=== PATIENT | female | born 1960 | race Hispanic/Latino ===

== ENCOUNTER 2018-08-30 01:43 | Observation (INO) | payer OTHER ==
[2018-08-30] MEDS ORDERED: Famotidine 20 MG TAB ONE (02:19)
[2018-08-30] MEDS ORDERED: Milk Of Magnesia 30 ML UDCUP ONE (02:19)
[2018-08-30] MEDS ORDERED: Lidocaine Viscous Sol 2% 15 ml UD Cup ONE (02:19)
[2018-08-30 02:36] LABS: #Basophils 0.1 thou/uL (0.0-0.2); #Eosinphils 0.1 thou/uL (0.0-0.7); #Lymphocytes 3.2 thou/uL (1.20-3.40); #Monocytes 0.6 thou/uL (0.11-0.59); #Neutrophils 12.7 thou/uL (1.40-6.50); %Basophils 0.5 % (0.0-1.0); %Eosinophils 0.6 % (0.0-10.0); %Lymphocytes 19.2 % (21.0-51.0); %Monocytes 3.4 % (0.0-10.0); %Neutrophils 76.2 % (42.0-75.0); Hemoglobin 14.2 g/dL (12.0-16.0); Mean Corpuscular HGB CONC 33.5 g/dL (32.0-36.0); Mean Corpuscular Hemoglobin 31.7 pg (27.0-31.0); Mean Corpuscular Volume 94.6 fL (78.0-98.0); Mean Platelet Volume 6.5 fL (7.4-10.4); Platelet Count 350 thou/uL (130-400); RBC Distribution Width 11.3 % (11.5-14.5); Red Blood Cell (RBC) Count 4.48 mill/uL (4.20-5.40); White Blood Cell (WBC) Count 16.7 thou/uL (4.8-10.8)
[2018-08-30 02:59] LABS: ALT (SGPT) 25 U/L (8-55); AST (SGOT) 19 U/L (5-34); Albumin 4.4 g/dL (3.5-5.0); Alkaline Phosphatase 100 U/L (40-150); Anion Gap 12 mmol/L (10-20); BUN (Urea Nitrogen) 20 mg/dL (9.8-20.1); Bilirubin, Total 0.4 mg/dL (0.2-1.2); Calc. Creatinine Clearance 0 mL/min (70-130); Calcium 9.8 mg/dL (7.8-10.44); Carbon Dioxide 24 mmol/L (22-29); Chloride 107 mmol/L (98-107); Estimated GFR-MDRD 67; Globulin 3.2 g/dL (2.4-3.5); Glucose 112 mg/dL (70-105); Potassium 3.6 mmol/L (3.5-5.1); Protein, Total 7.6 g/dL (6.0-8.3); Sodium 139 mmol/L (136-145)
[2018-08-30 03:52] LABS: Bilirubin Negative (Negative); Blood, Urine Small (Negative); Clarity CLEAR (Clear); Glucose, Urine (Dipstick) Negative (Negative); Leukocyte Small (Negative); Nitrite Negative (Negative); Protein, Urine (Dipstick) Negative (Neg-Trace); Specific Gravity, Urine 1.025 (1.002-1.036); Urobilinogen 0.2 mg/dL (0.2-1.0); pH, Urine 5.5 (5.0-9.0)
[2018-08-30 03:55] LABS: Bacteria/HPF None Seen HPF (None Seen); Hyaline Casts/LPF 4-6 HYALINE CAST LPF (0-3 Hyaline); Pathc Cast-AUWi Flag 0.14 (0-2.49); Squamous Epithelial 0-3 HPF (0-3)
[2018-08-30 03:59] LABS: Yeast-AUWi Flag 65.7 (0-25.0)
[2018-08-30 04:07] LABS: Yeast-All Forms None Seen HPF (None Seen)
[2018-08-30] MEDS ORDERED: Aspirin Chewable 81 MG TAB ONE (04:45)
[2018-08-30] MEDS ORDERED: Loperamide HCl 2 MG CAP PO PRN (07:28)
[2018-08-30] MEDS ORDERED: Sodium Chloride 0.65% Nasal 44 ML BOT EA NARE PRN (07:28)
[2018-08-30] MEDS ORDERED: Diabetic Tussin 200 MG/10 ML UDCUP PO PRN (07:28)
[2018-08-30] MEDS ORDERED: Ondansetron PF 4 MG/2 ML Vial IVP PRN (07:28)
[2018-08-30] MEDS ORDERED: Loratadine 10 MG TAB PO PRN (07:28)
[2018-08-30] MEDS ORDERED: Ondansetron ODT 4 MG TAB PO PRN (07:28)
[2018-08-30] MEDS ORDERED: HYDROcodone/Acetaminophen 5/325 mg Tablet PO PRN (07:28)
[2018-08-30] MEDS ORDERED: Eucerin (Mineral Oil/Petrolatum,White) 30 gm Jar TOP PRN (07:28)
[2018-08-30] MEDS ORDERED: Bisacodyl 10 MG SUPP PR PRN (07:28)
[2018-08-30] MEDS ORDERED: hydrALAZINE 20 MG/ML VIAL SLOW IVP PRN (07:28)
[2018-08-30] MEDS ORDERED: Senokot S 8.6-50 MG TAB PO PRN (07:28)
[2018-08-30] MEDS ORDERED: Cepastat Lozenges 1 LOZ PO PRN (07:28)
[2018-08-30] MEDS ORDERED: Nitroglycerin 0.4 MG TAB (25 Tab Bottle) SL PRN (07:28)
[2018-08-30] MEDS ORDERED: Calcium Carbonate 500 MG ChewTAB PO PRN (07:28)
[2018-08-30] MEDS ORDERED: Acetaminophen 325 MG TAB PO PRN (07:28)
[2018-08-30] MEDS ORDERED: Artificial Tears 18 DROP/0.9 ML EA EYE PRN (07:28)
[2018-08-30] MEDS ORDERED: Zolpidem Tartrate 5 MG TAB PO PRN (07:28)
[2018-08-30 07:47] VITALS: BMI 39.1
--- NOTE | 2018-08-30 08:23 | RAD ---
SINGLE VIEW OF THE CHEST: COMPARISON: 09/28/2012. HISTORY: Burning chest pain. FINDINGS: Single view of the chest shows a normal sized cardiomediastinal silhouette. There is no evidence of c onsolidation, mass, or pleural effusion. The bones are unremarkable. IMPRESSION: No evidence of acute cardiopulmonary disease. POS: [facility]
[2018-08-30] MEDS ORDERED: ADENOSINE 60 MG/20 ML VIAL ONE (09:20)
--- NOTE | 2018-08-30 09:54 | ULT ---
PRELIMINARY REPORT/[facility]/EMERGENTY AFTER-HOURS PROCEDURE US Abdomen Limited, Right Upper Quadrant EXAM DATE/TIME: 08/30/2018 3:05 AM CLINICAL HISTORY: 58 years old, female; Pain; Other: Ruq pain TECHNIQUE: Real-time ultrasound of the abdomen with image documentation. Examination was focused on the right up per quadrant. COMPARISON: No relevant prior studies available. FINDINGS: Limitations: Study limited secondary to patient body habitus. Liver: Echogenic hepatic parenchyma, compatible with hepatic cysts. No focal hepatic lesions. Gallbladder: Sonographic Silvestre sign was reportedly positive. Small amount of echogenic, nonshadowing material within the gallbladder, likely sludge. No pericholecystic fluid. Gallbladder wall measures 2 mm in thickness. Common bile duct: Common bile duct measures 5 mm in diameter. Pancreas: Visualized portions of the pancreas appear mildly echogenic, possibly secondary to fatty in filtration or medical pancreatic disease. Right kidney: Right kidney is normal in appearance and measures 11.5 cm in length. IMPRESSION: 1. Possible small amount of gallbladder sludge, without sonographic evidence of acute cholecystitis. 2. Mild hepatic steatosis. Thank you for allowing us to participate in the care of your patient. Dictated and Authenticated by: Darci Doll MD 08/30/2018 3:51 AM Central Time ([place] & [place]) FINAL REPORT RIGHT UPPER QUADRANT ULTRASOUND: Date: 08/30/18 Multiple longitudinal and transverse images of the right upper quadrant of the abdomen obtained using a multihertz curvilinear transducer. Real-time and color flow images demonstrate fibrofatty changes seen in the liver. The gallbladder demonstrates no evidence of wall thickening. No evidence of gallst ones seen. There may be a small amount of gallbladder sludge present. Common bile duct is of normal s ize, measuring 4.7 mm. No evidence of intrahepatic biliary dilatation seen. The pancreas is partially obscured due to overlying bowel gas. What is seen is unremarkable. The right kidney is unremarkable with no evidence of masses, lesions, or hydronephrosis. IMPRESSION: Possible small amount of gallbladder sludge. No definite evidence of cholelithiasis seen. No evidence of intrahepatic biliary dilatation seen. I am in agreement with the preliminary report issued by Gary. POS: [facility]
--- NOTE | 2018-08-30 10:32 | HP ---
PRIMARY CARE PHYSICIAN: [facility] Call admission. REASON FOR ADMISSION: Chest pain, epigastric pain, and leukocytosis. HISTORY OF PRESENT ILLNESS: A 58-year-old female, who has underlying history of obstructive sleep apnea, on CPAP, as well as chronic left bundle-branch block and hypertension, who presented to emergency room with complaint of chest pain. Her chest pain was substernal in location, radiating to jaw, and associated with cold sweats and nausea. The patient was given aspirin and that helped her pain. There was no specific aggravating factor. The patient was also complaining of epigastric pain. She does have chronic dyspepsia symptoms. She denies any fever or chills. She does not have any UTI symptoms. When I saw this patient in the morning, the patient's chest pain was subsided. She was feeling mild epigastric discomfort. She denies any constipation, diarrhea, melena, or hematochezia. She denies any dyspnea on exertion, palpitation, orthopnea, or PND. She denies any lower extremity edema or calf tenderness. She denies any immobilization. The patient reports that her epigastric pain started after eating pizza. The patient also reports that she intermittently gets this type of epigastric discomfort after certain type of foods. She denies any weight loss. REVIEW OF SYSTEMS: CONSTITUTIONAL: Negative for weight loss or gain, ability to conduct usual activities. SKIN: Negative for rash, itching. EYES: Negative for double vision, pain. ENT/MOUTH: Negative for nose bleeding, neck stiffness, pain, tenderness. CARDIOVASCULAR: Negative for palpitations, dyspnea on exertion, orthopnea. RESPIRATORY: Negative for shortness of breath, wheezing, cough, hemoptysis, fever or night sweats. GASTROINTESTINAL: Negative for poor appetite, abdominal pain, heartburn, nausea, vomiting, constipation, or diarrhea. GENITOURINARY: Negative for urgency, frequency, dysuria, nocturia. MUSCULOSKELETAL: Negative for pain, swelling. NEUROLOGIC/PSYCHIATRIC: Negative for anxiety, depression. ALLERGY/IMMUNOLOGIC: Negative for skin rash, bleeding tendency. Please see my HPI for pertinent positives and negatives. All other review of systems reviewed and negative except as mentioned in HPI. PAST MEDICAL HISTORY: JOSIE, on CPAP; chronic LBBB; hypertension; gastroesophageal reflux disease; obesity. PAST SURGICAL HISTORY: x2. PAST PSYCHIATRIC HISTORY: Anxiety and depression. SOCIAL HISTORY: The patient is . She drinks alcohol socially. She denies any smoking. She denies any other illicit drug abuse. FAMILY HISTORY: No family history of coronary artery disease, stroke, or cancer. ALLERGIES: LISINOPRIL GIVES COUGH. CURRENT HOME MEDICATIONS: 1. Lasix 20 mg daily. 2. Coreg 3.125 mg twice daily. 3. Lexapro 10 mg daily. 4. Losartan 12.5 mg p.o. daily. 5. Protonix 40 mg p.o. daily. EMERGENCY ROOM COURSE: The patient is given aspirin, IV fluid, GI cocktail, and Pepcid. PHYSICAL EXAMINATION: VITAL SIGNS: On arrival, blood pressure 117/55, pulse 81, respiratory rate 20, temperature 98.0, saturation 98% on room air, and weight 98.4 kg. GENERAL: The patient is currently alert, awake, and in no obvious acute distress. HEENT: Head; normocephalic and atraumatic. Eyes; pupils round and reactive to light. Extraocular muscle intact. ENT; oropharynx within normal limits. Moist mucous membranes. No oral lesion. No pharyngeal erythema. No exudate. NECK: Supple. No JVD. No thyromegaly. No carotid bruit. No jugular venous distention. LUNGS: Clear to auscultation without any rhonchi or rales. CARDIAC: S1 and S2 regular without any murmur. ABDOMEN: Soft. Bowel sounds present. The patient does have mild epigastric discomfort, but I deeply palpated right upper quadrant and I could not elicit Silvestre's sign. BACK: Unremarkable. No CVA tenderness. EXTREMITIES: Upper extremities, passive movement of all joints are normal. Lower extremities, no edema. Good distal pulsation. No calf tenderness. SKIN: No skin rash. HEMATOLOGICAL SYSTEM: No lymphadenopathy. NEUROLOGIC: Nonfocal examination. SIGNIFICANT LABORATORY DATA: EKG showing complete left bundle-branch block pattern. Abdominal ultrasound showing gallbladder sludge. Chest x-ray, based on my review, no acute cardiopulmonary process. CBC, WBC 16.7, hemoglobin 14.2, and platelets 350. BMP, sodium 139, potassium 3.6, chloride 107, carbon dioxide 24, BUN 20, creatinine 0.87, glucose 112, and calcium 9.8. LFT, AST 19, ALT 25, alkaline phosphatase 100, and albumin 4.4. Cardiac enzyme negative x3. Urinalysis, leukocyte esterase small and wbc's 4 to 6. ASSESSMENT AND PLAN: 1. Chest pain. The patient's chest pain description is atypical. She does have chronic left bundle-branch block picture. She has negative cardiac enzymes. At this point, the patient is agreed to perform stress test for further evaluation. We will check lipid profile tomorrow. As the patient has left bundle-branch block, the patient will need imaging stress test. 2. Epigastric pain, suspecting from gastroesophageal reflux disease. The patient does have right upper quadrant ultrasound, which is showing gallbladder sludge. She does not have any liver function test abnormality and I could not elicit any Silvestre's sign, and the patient also does not have any fever. She does have chronic dyspepsia symptoms. The patient may need outpatient evaluation if persistent problem for laparoscopic cholecystectomy if needed, but at this point the patient does not need that intervention during this admission. 3. Leukocytosis, likely stress related, but less likely to be infection given no fever. At this point, we will repeat complete blood count tomorrow. We will send urine culture. While in hospital, if she gets any low-grade fever, then we will have low threshold to start oral antibiotic therapy for asymptomatic bacteriuria. 4. Asymptomatic bacteriuria. The patient does not have any urinary tract infection symptoms. We will send urine culture. We will avoid antibiotic therapy at this point. 5. Deep venous thrombosis prophylaxis not needed because we are expecting discharge in 24 hours. 6. Gastrointestinal prophylaxis, Protonix 40 mg p.o. daily. 7. Hypertension. We will hold on antihypertensive medication because of currently low blood pressure and we will continue with intravenous fluid. 8. Fatty liver, but the patient's liver function test is normal. The patient will need underlying metabolic factors correction. 9. Obesity with body mass index 39. Dietary education given. Weight loss education given. Healthy lifestyle measure discussed with the patient. DISPOSITION PLAN: Likely tomorrow. Plan of care discussed with the patient and family member in detail. Job ID: [id number]
[2018-08-30] MEDS: Escitalopram Oxalate 10 mg Tablet PO SCH (11:05)
[2018-08-30] MEDS: Sodium Chloride 0.9% 1,000 ML IV SCH ×2 (11:08→22:51)
[2018-08-31 05:37] LABS: #Eosinphils 0.1 thou/uL (0.0-0.7); #Lymphocytes 2.9 thou/uL (1.20-3.40); #Monocytes 0.4 thou/uL (0.11-0.59); #Neutrophils 3.6 thou/uL (1.40-6.50); %Basophils 0.6 % (0.0-1.0); %Eosinophils 1.7 % (0.0-10.0); %Lymphocytes 41.8 % (21.0-51.0); %Monocytes 5.6 % (0.0-10.0); %Neutrophils 50.4 % (42.0-75.0); Mean Corpuscular HGB CONC 33.1 g/dL (32.0-36.0); Mean Corpuscular Hemoglobin 31.7 pg (27.0-31.0); Mean Corpuscular Volume 95.7 fL (78.0-98.0); Mean Platelet Volume 6.5 fL (7.4-10.4); Platelet Count 301 thou/uL (130-400); RBC Distribution Width 11.3 % (11.5-14.5); Red Blood Cell (RBC) Count 3.78 mill/uL (4.20-5.40)
[2018-08-31 06:22] LABS: Anion Gap 10 mmol/L (10-20); BUN (Urea Nitrogen) 14 mg/dL (9.8-20.1); Calc. Creatinine Clearance 138 mL/min (70-130); Calcium 8.8 mg/dL (7.8-10.44); Carbon Dioxide 20 mmol/L (22-29); Cardiac Risk 2.7 (Less than 4.5); Chloride 111 mmol/L (98-107); Cholesterol 128 mg/dl (< 200 Desired); Estimated GFR-MDRD 88; Glucose 90 mg/dL (70-105); HDL Cholesterol 47 mg/dL (>60 Neg Risk); LDL Cholesterol, Calculated 62 mg/dL; Potassium 4.2 mmol/L (3.5-5.1); Sodium 137 mmol/L (136-145); Triglycerides 94 mg/dL (Less than 150)
--- NOTE | 2018-08-31 09:31 | PDOC.PN ---
- Subjective Encounter Start Date: 08/31/18 Encounter Start Time: 07:10 -: old records requested/rev Patient seen and examined. No new complaints. No overnight events - Objective Resuscitation Status - Order Detail: 08/30/18 07:25 Resuscitation Status Routine Resuscitation Status: FULL: Full Resuscitation MAR Reviewed: Yes Vital Signs & Weight: Vital Signs (12 hours) Temp Pulse Resp BP Pulse Ox 08/31/18 07:16 98.3 F 70 15 136/60 97 08/30/18 23:37 98.4 F 72 12 120/56 L 95 Weight Weight 214 lb I&O: 08/30/18 08/31/18 09/01/18 06:59 06:59 06:59 Intake Total 2241 Balance 2241 Result Diagrams: 08/31/18 04:42 08/31/18 04:42 EKG Reviewed by me: Yes (nsr) Phys Exam - Physical Examination Constitutional: NAD HEENT: PERRLA, moist MMs, sclera anicteric Neck: no JVD, supple Respiratory: no wheezing, no rales, no rhonchi Cardiovascular: RRR, no significant murmur, no rub Gastrointestinal: soft, non-tender, no distention, positive bowel sounds Musculoskeletal: no edema, pulses present Neurological: non-focal, normal sensation, moves all 4 limbs Psychiatric: normal affect, A&O x 3 Skin: no rash, normal turgor Dx/Plan (1) Chest pain Code(s): R07.9 - CHEST PAIN, UNSPECIFIED Status: Resolved (2) Epigastric abdominal pain Code(s): R10.13 - EPIGASTRIC PAIN Status: Resolved (3) Hypertension Code(s): I10 - ESSENTIAL (PRIMARY) HYPERTENSION Status: Chronic (4) GERD (gastroesophageal reflux disease) Code(s): K21.9 - GASTRO-ESOPHAGEAL REFLUX DISEASE WITHOUT ESOPHAGITIS Status: Chronic (5) Obesity (BMI 30-39.9) Code(s): E66.9 - OBESITY, UNSPECIFIED Status: Chronic (6) Asymptomatic bacteriuria Code(s): R82.71 - BACTERIURIA Status: Acute - Plan cont current plan of care, plan discussed w/ family * cipro for asymptomatic UTI * if stress test normal will DC to home * medication reviewed as below * symptomatic treatment. Review of Systems - Review of Systems ENT: negative: Ear Pain, Ear Discharge, Nose Pain, Nose Discharge, Nose Congestion, Mouth Pain, Mouth Swelling, Throat Pain, Throat Swelling, Other Respiratory: negative: Cough, Dry, Shortness of Breath, Hemoptysis, SOB with Excertion, Pleuritic Pain, Sputum, Wheezing Cardiovascular: negative: chest pain, palpitations, orthopnea, paroxysmal nocturnal dyspnea, edema, light headedness, other Gastrointestinal: negative: Nausea, Vomiting, Abdominal Pain, Diarrhea, Constipation, Melena, Hematochezia, Other Genitourinary: negative: Dysuria, Frequency, Incontinence, Hematuria, Retention , Other Musculoskeletal: negative: Neck Pain, Shoulder Pain, Arm Pain, Back Pain, Hand Pain, Leg Pain, Foot Pain, Other Skin: negative: Rash, Lesions, Negro, Bruising, Other - Medications/Allergies Allergies/Adverse Reactions: Allergies Allergy/AdvReac Type Severity Reaction Status Date / Time lisinopril AdvReac Mild COUGH Verified 08/30/18 08:01 Medications: Current Medications Acetaminophen (Tylenol) 650 mg PO Q4H PRN PRN Reason: Headache/Fever/Mild Pain (1-3) Last Admin: 08/30/18 14:19 Dose: 650 mg Hydrocodone Bitart/Acetaminophen (Rossiter 5/325) 1 tab PO Q4H PRN PRN Reason: Moderate Pain (4-6) Last Admin: 08/31/18 06:15 Dose: 1 tab Artificial Tears (Tears Naturale) 2 drop EA EYE PRN PRN PRN Reason: Dry Eyes Bisacodyl (Dulcolax) 10 mg VT DAILYPRN PRN PRN Reason: Constipation Calcium Carbonate (Tums) 1,000 mg PO Q4H PRN PRN Reason: Heartburn or Indigestion Escitalopram Oxalate (Lexapro) 20 mg PO DAILY [facility] Last Admin: 08/30/18 11:05 Dose: 20 mg Guaifenesin (Robitussin Sf) 200 mg PO Q4H PRN PRN Reason: Cough Hydralazine HCl (Apresoline) 10 mg SLOW IVP Q4H PRN PRN Reason: SBP > 180 and HR < 70 Sodium Chloride (Normal Saline 0.9%) 1,000 mls @ 75 mls/hr IV .[id number] [facility] Last Admin: 08/30/18 22:51 Dose: 1,000 mls Loperamide HCl (Imodium) 2 mg PO PRN PRN PRN Reason: Diarrhea/Loose Stools Loratadine (Claritin) 10 mg PO DAILYPRN PRN PRN Reason: Sinus Symptoms Mineral Oil/White Petrolatum (Eucerin Cream) 0 gm TOP BIDPRN PRN PRN Reason: Dry Skin Nitroglycerin (Nitrostat) 0.4 mg SL Q5MIN PRN PRN Reason: Chest Pain Ondansetron HCl (Zofran Odt) 4 mg PO Q6H PRN PRN Reason: Nausea/Vomiting Ondansetron HCl (Zofran) 4 mg IVP Q6H PRN PRN Reason: Nausea/Vomiting Pantoprazole Sodium (Protonix) 40 mg PO DAILY [facility] Last Admin: 08/30/18 11:07 Dose: 40 mg Senna/Docusate Sodium (Senokot S) 2 tab PO BID PRN PRN Reason: Constipation Sodium Chloride ([place] 0.65%) 0 ml EA NARE QIDPRN PRN PRN Reason: Nasal Congestion Throat Lozenges (Cepastat Lozenges) 1 moni PO Q2H PRN PRN Reason: Sore Throat Zolpidem Tartrate (Ambien) 5 mg PO HSPRN PRN PRN Reason: Insomnia
[2018-08-31] MEDS: Escitalopram Oxalate 10 mg Tablet PO SCH (09:38)
[2018-08-31 10:44] VITALS: BP 119/61; TEMP 97.9
[2018-08-31] MEDS: Sodium Chloride 0.9% 1,000 ML IV SCH (10:45)
--- NOTE | 2018-08-31 11:01 | NM ---
NUCLEAR MEDICINE CARDIAC PERFUSSION EXAMINATION WITH EJECTION FRACTION: History: 58-year-old female with chest pain and hypertension. Technique: A two-day Nuclear Medicine cardiac perfusion examination was performed. Resting images wer e obtained using 33 mCi Technetium 99M Sestamibi. Stress images were obtained using 30 mCi Technetium 99M Sestamibi and Adenosine. FINDINGS: There is a moderate sized, moderate intensity perfusion defect along the interseptal wall that is fix ed. No reversible perfusion defects are seen. Gated images show normal wall motion with ejection fraction of 59%. EDV is 88 ml. LHR is 0.4. TID is 1.04. IMPRESSION: 1. No evidence of ischemia. 2. Fixed perfusion defect along the anteroseptal wall extending into the apex may be sequellae from p rior infarction.
--- NOTE | 2018-08-31 11:18 | DIS ---
DATE OF ADMISSION: 08/30/2018 DATE OF DISCHARGE: 08/31/2018 PRIMARY CARE PHYSICIAN: [facility] Call Admission. DISCHARGE DISPOSITION: Home. PRIMARY DISCHARGE DIAGNOSES: Chest pain, ruled out acute coronary syndrome; epigastric abdominal pain, likely due to gastroesophageal reflux disease; asymptomatic bacteriuria. SECONDARY DISCHARGE DIAGNOSES: Gastroesophageal reflux disease, hypertension, obesity, dyslipidemia, coronary artery disease. PRIMARY PROCEDURE/OPERATION: None. RADIOLOGICAL INVESTIGATION: Chest x-ray; normal. Abdominal ultrasound showed gallbladder sludge. Stress test showed fixed defect without any reversible ischemia. SIGNIFICANT LABORATORY DATA: WBC 7.0, hemoglobin 12.0, platelets 301. Sodium 137, creatinine 0.69. LDL 62. Cardiac enzyme negative. LFT normal. Urinalysis showed leukocyte esterase small. Urine culture negative. DISCHARGE MEDICATIONS: 1. Cipro 500 mg p.o. b.i.d. for three days. 2. Aspirin 81 mg daily. 3. Coreg 3.125 mg b.i.d. 4. Lexapro 20 mg daily. 5. Lasix 20 mg daily. 6. Losartan 12.5 mg b.i.d. 7. Protonix 40 mg p.o. daily. CONTRAINDICATION: None. CODE STATUS: Full code. INPATIENT UROLOGIC NURSE: None. ALLERGIES: LISINOPRIL. DISCHARGE PLAN: Posthospital, the patient will follow up with primary care physician. HOSPITAL COURSE: A 58-year-old female with above-mentioned medical problem, who was admitted by me yesterday with chest pain. Please see my HPI for further detail. Her chest pain description was atypical. Her cardiac enzyme and EKG were unremarkable. The patient underwent stress test, which showed only fixed defect without any reversible ischemia. She also complained of epigastric abdominal pain that was related with gastroesophageal reflux disease. We found a small gallbladder sludge, but her LFT was normal. Overall, the patient did very well. The patient is planned for discharge today. The patient is seen and examined at bedside today. Plan of care discussed with the family member as well. Job ID: [id number]
== END 2018-08-31 11:33 | disposition home or self-care (01) ==
LOC: ERS 01:43 → ERHOLD 05:00 → 2SW 07:24
PROVIDERS: ADMIT Family Medicine; ATTEND Family Medicine
DX: R07.89 Other chest pain (principal); R10.13 Epigastric pain; R82.71 Bacteriuria; K21.9 Gastro-esophageal reflux disease without esophagitis; I10 Essential (primary) hypertension; I25.10 Atherosclerotic heart disease of native coronary artery without angina pectoris; E78.5 Hyperlipidemia, unspecified; K76.0 Fatty (change of) liver, not elsewhere classified; G47.33 Obstructive sleep apnea (adult) (pediatric); I44.7 Left bundle-branch block, unspecified; F41.9 Anxiety disorder, unspecified; F32.9 Major depressive disorder, single episode, unspecified; E66.9 Obesity, unspecified; Z68.39 Body mass index [BMI] 39.0-39.9, adult; Z79.899 Other long term (current) drug therapy; Z99.89 Dependence on other enabling machines and devices
CPT/HCPCS: 36415; 71045; 76705; 78452; 80048; 80053; 80061; 81003; 81015; 84484; 85025; 87086; 90471; 90686; 93005; 93017; 96360; 96361; A9500; G0008; G0378; J0153

== ENCOUNTER 2021-05-08 12:18 | Inpatient (IN) | payer OTHER ==
[2021-05-08 12:56] LABS: #Basophils 0.1 thou/uL (0.0-0.2); #Eosinphils 0.2 thou/uL (0.0-0.7); #Lymphocytes 3.3 thou/uL (1.20-3.40); #Monocytes 0.6 thou/uL (0.11-0.59); #Neutrophils 4.6 thou/uL (1.40-6.50); %Eosinophils 2.6 % (0.0-10.0); %Lymphocytes 37.5 % (21.0-51.0); %Monocytes 6.2 % (0.0-10.0); %Neutrophils 52.8 % (42.0-75.0); Hemoglobin 13.7 g/dL (12.0-16.0); Mean Corpuscular HGB CONC 34.2 g/dL (32.0-36.0); Mean Corpuscular Hemoglobin 31.4 pg (27.0-31.0); Mean Corpuscular Volume 91.8 fL (78.0-98.0); Mean Platelet Volume 6.5 fL (7.4-10.4); Platelet Count 344 thou/uL (130-400); RBC Distribution Width 11.3 % (11.5-14.5); Red Blood Cell (RBC) Count 4.37 mill/uL (4.20-5.40); White Blood Cell (WBC) Count 8.8 thou/uL (4.8-10.8)
[2021-05-08 13:07] LABS: ALT (SGPT) 29 U/L (8-55); AST (SGOT) 21 U/L (5-34); Albumin 4.1 g/dL (3.5-5.0); Alkaline Phosphatase 103 U/L (40-110); Anion Gap 11 mmol/L (10-20); BUN (Urea Nitrogen) 12 mg/dL (9.8-20.1); Bilirubin, Total 0.3 mg/dL (0.2-1.2); Calc. Creatinine Clearance 0 mL/min (70-130); Calcium 9.4 mg/dL (7.8-10.44); Carbon Dioxide 28 mmol/L (22-29); Chloride 105 mmol/L (98-107); Glucose 95 mg/dL (70-105); Protein, Total 7.1 g/dL (6.0-8.3); Sodium 140 mmol/L (136-145)
[2021-05-08] MEDS ORDERED: Aspirin Chewable 81 MG TAB ONE (14:18)
[2021-05-08] MEDS ORDERED: Acetaminophen 650 MG Suppository PR PRN (16:38)
[2021-05-08] MEDS ORDERED: Acetaminophen 325 MG TAB PO PRN (16:38)
[2021-05-08] MEDS ORDERED: Ondansetron ODT 4 MG TAB PO PRN (16:38)
[2021-05-08] MEDS ORDERED: Ondansetron PF 4 MG/2 ML Vial IVP PRN (16:38)
[2021-05-08] MEDS ORDERED: Nitroglycerin 0.4 MG TAB (25 Tab Bottle) SL PRN (16:39)
[2021-05-08 17:17] LABS: Troponin I Less than 0.010 ng/mL (< 0.028)
[2021-05-08 21:00] LABS: Troponin I Less than 0.010 ng/mL (< 0.028)
[2021-05-08] MEDS: Carvedilol 3.125 MG TAB PO SCH (21:31)
[2021-05-09 00:25] LABS: SARS-CoV-2 NAA Rapid Test Not Detected (NotDetected)
[2021-05-09] MEDS ORDERED: FLU VACC QS2021-22(6MOS UP)/PF 60 MCG/0.5 ML SYRINGE IM ONE (04:00)
[2021-05-09 04:41] VITALS: BMI 44.4
[2021-05-09] MEDS ORDERED: Regadenoson 0.4 MG/5 ML SYRINGE ONE (08:38)
[2021-05-09] MEDS: Aspirin Chewable 81 MG TAB PO SCH (11:27)
[2021-05-09] MEDS: Carvedilol 3.125 MG TAB PO SCH ×2 (11:27→21:24)
[2021-05-09 11:48] LABS: #Eosinphils 0.2 thou/uL (0.0-0.7); #Lymphocytes 2.5 thou/uL (1.20-3.40); #Monocytes 0.5 thou/uL (0.11-0.59); #Neutrophils 4.8 thou/uL (1.40-6.50); %Basophils 0.5 % (0.0-1.0); %Eosinophils 2.4 % (0.0-10.0); %Lymphocytes 31.3 % (21.0-51.0); %Monocytes 5.6 % (0.0-10.0); %Neutrophils 60.2 % (42.0-75.0); Hemoglobin 13.2 g/dL (12.0-16.0); Mean Corpuscular Hemoglobin 31.4 pg (27.0-31.0); Mean Corpuscular Volume 92.5 fL (78.0-98.0); Mean Platelet Volume 6.3 fL (7.4-10.4); Platelet Count 318 thou/uL (130-400); RBC Distribution Width 11.3 % (11.5-14.5); Red Blood Cell (RBC) Count 4.22 mill/uL (4.20-5.40); White Blood Cell (WBC) Count 7.9 thou/uL (4.8-10.8)
[2021-05-09 12:03] LABS: Anion Gap 11 mmol/L (10-20); BUN (Urea Nitrogen) 15 mg/dL (9.8-20.1); Calc. Creatinine Clearance 145 mL/min (70-130); Calcium 9.2 mg/dL (7.8-10.44); Carbon Dioxide 26 mmol/L (22-29); Cardiac Risk 3.3 (Less than 4.5); Chloride 107 mmol/L (98-107); Cholesterol 152 mg/dl (< 200 Desired); Glucose 104 mg/dL (70-105); HDL Cholesterol 46 mg/dL (>60 Neg Risk); LDL Cholesterol, Calculated 93 mg/dL; Potassium 4.1 mmol/L (3.5-5.1); Sodium 140 mmol/L (136-145); Triglycerides 63 mg/dL (Less than 150)
[2021-05-10] MEDS: Carvedilol 3.125 MG TAB PO SCH (09:12)
[2021-05-10] MEDS: Aspirin Chewable 81 MG TAB PO SCH (09:12)
[2021-05-10 12:45] VITALS: BP 125/80; TEMP 97.5
== END 2021-05-10 13:21 | disposition home or self-care (01) | DRG 313 ==
LOC: ERS 12:18 → ERHOLD 16:12 → 2NO 05-09 06:58
PROVIDERS: ADMIT Internal Medicine; ATTEND Internal Medicine
DX: R07.89 Other chest pain (principal); I50.22 Chronic systolic (congestive) heart failure; Z68.41 Body mass index [BMI] 40.0-44.9, adult; G47.33 Obstructive sleep apnea (adult) (pediatric); K21.9 Gastro-esophageal reflux disease without esophagitis; E66.01 Morbid (severe) obesity due to excess calories; I11.0 Hypertensive heart disease with heart failure; Z20.822 Contact with and (suspected) exposure to COVID-19; Z88.5 Allergy status to narcotic agent; Z79.82 Long term (current) use of aspirin; Z79.899 Other long term (current) drug therapy
CPT/HCPCS: 36415; 71045; 78452; 80048; 80053; 80061; 83880; 84484; 85025; 85379; 93005; 93017; A9500; J2785; U0002